=== PATIENT | female | born 1955 | race Caucasian/White ===

== ENCOUNTER 2018-03-17 06:12 | Day surgery (SDC) | payer OTHER ==
[2018-03-17] MEDS ORDERED: FENTAnyl 50 MCG/ML VIAL (08:13)
[2018-03-17] MEDS ORDERED: MIDAZOLAM 1 MG/ML 2 ML INJ (08:13)
== END 2018-03-17 10:17 | disposition home or self-care (01) ==
LOC: GIL 06:12
DX: Z12.11 Encounter for screening for malignant neoplasm of colon (principal); K64.8 Other hemorrhoids
CPT/HCPCS: 45378